=== PATIENT | male | born 1960 | race Hispanic/Latino ===

== ENCOUNTER 2018-04-02 14:58 | Emergency (ER) | payer OTHER ==
--- OUTSIDE RECORDS SUMMARY | 2018-04-02 15:01 | XMS REPORT ---
:1960 Author Organization eClinicalWorks Care Team Providers Name Role Phone Hernandez, Na Provider Role Unavailable Allergies, Adverse Reactions, Alerts Substance Reaction Event Type N.K.D.A. Info Not Available Non Drug Allergy Problems Problem Type Condition Code Onset Dates Condition Status Assessment Encounter for screening colonoscopy Z12.11 Active Assessment Benign essential HTN I10 Active Assessment Pure hypercholesterolemia E78.00 Active Assessment History of colon polyps Z86.010 Active Problem Peripheral neuropathy G62.9 Active Problem Encounter for screening colonoscopy Z12.11 Active Problem Benign essential HTN I10 Active Problem History of colon polyps Z86.010 Active Problem Pure hypercholesterolemia E78.00 Active Problem Hypertriglyceridemia E78.1 Active Problem Obese E66.9 Active Medications Medication Code System Code Instructions Start Date End Date Status Dosage Micardis [facility] [id number] 80 MG Orally Once Active 1 tablet a day Results No Known Results Summary Purpose eClinicalWorks Submission
--- NOTE | 2018-04-02 15:52 | ER ---
Nurse's Notes [facility] Name: Carrillo Kaye Age: 57 yrs Sex: Male : 1960 Arrival Date: 04/02/2018 Time: 15:00 Bed Waiting Private MD: Brenda Dudley L Diagnosis: Presentation: 04/02 15:44 Presenting complaint: Patient states: upper abd pain, nausea, vomiting, and diarrhea aa5 since yesterday. Transition of care: patient was not received from another setting of care. Onset of symptoms Onset of symptoms was March 2018. Risk Assessment: Do you want to hurt yourself or someone else? Patient reports no desire to harm self or others. Initial Sepsis Screen: Does the patient meet any 2 criteria? No. Patient's initial sepsis screen is negative. Does the patient have a suspected source of infection? No. Patient's initial sepsis screen is negative. Care prior to arrival: None. 15:44 Method Of Arrival: Ambulatory aa5 15:44 Acuity: RADAMES 3 aa5 Historical: - Allergies: 15:45 No Known Allergies; aa5 - PMHx: 15:45 Hypertension; aa5 - PSHx: 15:45 None; aa5 - Immunization history:: Adult Immunizations unknown. - Social history:: Smoking status: Patient/guardian denies using tobacco. - Ebola Screening: : No symptoms or risks identified at this time. Vital Signs: 15:45 BP 115 / 77; Pulse 108; Resp 16 S; Temp 98.4(TE); Pulse Ox 97% on R/A; Weight 102.97 kg aa5 (R); Height 5 ft. 8 in. (172.72 cm) (R); Pain 8/10; 15:45 Body Mass Index 34.51 (102.97 kg, 172.72 cm) aa5 ED Course: 15:00 Patient arrived in ED. sb2 15:01 Brenda Dudley MD is Private Physician. sb2 15:44 Triage completed. aa5 15:44 Arm band placed on. aa5 15:51 Andrews Dickey MD is Attending Physician. aa5 Administered Medications: No medications were administered Outcome: 15:51 Patient left the ED. aa5 Signatures: Megan Neri RN RN aa5 Francheska Gonzalez sb2
== END 2018-04-02 15:51 | disposition left against medical advice (07) ==
LOC: ER 14:58
DX: R10.10 Upper abdominal pain, unspecified (principal); R11.2 Nausea with vomiting, unspecified; R19.7 Diarrhea, unspecified; I10 Essential (primary) hypertension; Z53.21 Procedure and treatment not carried out due to patient leaving prior to being seen by health care provider
CPT/HCPCS: 99281

== ENCOUNTER 2020-10-17 04:55 | Emergency (ER) | payer OTHER ==
--- OUTSIDE RECORDS SUMMARY | 2020-10-17 05:00 | XMS REPORT ---
:1960 Author Organization [facility] Address [address] [place] [place] [address] Care Team Providers Name Role Phone Hernandez Unavailable [phone] PROBLEMS Type Condition ICD9-CM [id number] Onset Condition SNOMED Code Notes Code Code Dates Status Problem History of colon Z86.010 Active 848425820 polyps Problem Hypertriglyceridemia E78.1 Active 062955479 Problem Obese E66.9 Active 036897137 Problem Seasonal allergies J30.2 Active 669612342 Problem Eosinophilia D72.1 Active 886865066 Problem Seasonal allergic J30.2 Active 909111290 rhinitis, unspecified trigger Problem Benign essential HTN I10 Active 30788863 Problem Hospital discharge Z09 Active 890728784 follow-up Problem H. pylori infection A04.8 Active 494318681 Problem Trigger finger, right M65.331 Active 192596649 middle finger Problem Multiple joint pain M25.50 Active 71258809 Problem Other chronic pain G89.29 Active 77763160 Problem Severe obesity (BMI E66.01 Active 881111875528 04 35.0-39.9) with comorbidity Problem Allergic rhinitis, J30.9 Active 85943074 unspecified seasonality, unspecified trigger Problem Subacromial bursitis M75.51 Active 72036692571 22591 of right shoulder joint Problem Pain, joint, M25.511 Active [id number] shoulder, right Problem Strain of lumbar S39.012S Active 505766488 region, sequela Problem Peripheral neuropathy G62.9 Active 515688409 Problem Vitamin D deficiency E55.9 Active 06377174 Problem Encounter for Z12.11 Active 819749292 screening colonoscopy Problem Pure E78.00 Active 907556753 hypercholesterolemia Problem Impingement syndrome M75.41 Active 468936158 of right shoulder Problem Chronic fatigue R53.82 Active 39882930 Problem Tear of right rotator M75.101 Active 634604905 cuff, unspecified tear extent, unspecified whether traumatic Problem Primary M19.011 Active 102359497285438 osteoarthritis of right shoulder ALLERGIES No Known Allergies ENCOUNTERS from 1960 to 2020-09-09 Encounter Location Date Provider Diagnosis [facility] [place] [address] Lexy CROWELL 14 Aug, 2020 Na Hernandez Benign es sential HTN I10 ; Drive [address] [place], [facility] [place] [address] unspecified se asonality, unspecified tri gger J30.9 ; Hypertriglyceri demia E78.1 ; Chronic fatigue R53.82 ; Decreased libid o R68.82 ; Pure hyperchole sterolemia E78.00 ; Vitami n D deficiency E55. 9 and Multiple joint pain M25.50 IMMUNIZATIONS Vaccine Route Administration Date Status Afluria IM Intramuscular Jul 24, 2018 Administered LIDOCAINE HCL 10MG/ML Unknown April 19, 2019 Administer ed Kenalog (Triamcinolone) Unknown April 19, 2019 Administ ered SOCIAL HISTORY Tobacco Use: Social History Observation Description Date Details (start date - stop date) Never Smoker Sex Assigned At : Social History Observation Description Sex Assigned At Unknown PHQ9 Question Answer Notes Little interest or pleasure in doing things Several days Feeling down, depressed, or hopeless More than half the days Trouble falling or staying asleep or sleeping too much Not a t all Feeling tired or having little energy Several days Poor appetite or overeating Several days Feeling bad about yourself, or that you are a failure, Not a t all or have let yourself or your family down Trouble concentrating on things, such as reading the Not at all newspaper or watching television Moving or speaking so slowly that other people could Not at all have noticed; or the opposite, being so fidgety or restless that you have been moving around a lot more than usual Total Score 5 Interpretation Mild Depression Thoughts that you would be better off or of Not at all hurting yourself in some way Alcohol Screen Question Answer Notes Did you have a drink containing alcohol in Yes the past year? Points 5 Interpretation Positive How often did you have 6 or more drinks on Less than monthly (1 point) one occasion in the past year? How many drinks did you have on a typical 1 or 2 (0 points) day when you were drinking in the past year? How often did you have a drink containing Four or more times a week (4 points) alcohol in the past year? Tobacco Use/Smoking Question Answer Notes Are you a never smoker Additional Findings: Tobacco Non-User Current non-smoker REASON FOR REFERRAL No Information VITAL SIGNS Height 68 in Aug, Weight 234.6 lbs Aug, Temperature 94.7 degrees Fahrenheit Aug, BMI 35.67 kg/m2 Aug, Oximetry 97 % Aug, Respiratory Rate 16 /min Aug, Blood pressure systolic 136 mm Hg Aug, Blood pressure diastolic 75 mm Hg Aug, MEDICATIONS Medication SIG (Take, Route, Notes Start Date End Date Status Frequency, Duration) Zyrtec Allergy 10 MG 1 tablet Orally Once a Active day for 90 days Amoxicillin Not-Taking Omeprazole Not-Taking Flonase 50 MCG/ACT 2 spray in each nostril Mar, Not-Taking Nasally Once a day for 90 days Hydrochlorothiazide Not-T aking Micardis 40 MG 1 tablet Orally twice a Active date for 90 days Clarithromycin Not-Taking Micardis 40 MG 1.5 tablet Orally Once a Unknown day for 90 Cetirizine HCl 10 MG 1 tablet Orally Once a Mar, Not-Taking day for 90 days Telmisartan 40 MG TAKE 1 AND 1/2 TABLETS BY Active MOUTH EVERY DAY for 90 Meloxicam Not-Taking PROCEDURES No Information RESULTS No Results REASON FOR VISIT Medication refill , BP more elevated, hld, multiple joint , decrased libido /fatigue MEDICAL (GENERAL) HISTORY Type Description Date Medical History Benign essential HTN Medical History Hypertriglyceridemia Medical History Obese Medical History Peripheral neuropathy Surgical History No Surgical history information Goals Section No Information Health Concerns No Information MEDICAL EQUIPMENT No Information MENTAL STATUS No Information FUNCTIONAL STATUS No Information ASSESSMENTS Encounter Date Diagnosis Assessment Treatment Notes Treatment Notes Clinical Notes Aug, Benign essential HTN Maintian a low (ICD-10 - I10) salt DASH diet, exercise, weight loss and decrease stress recommended. Keep BP log and will review next visit. If blood pressure consistently above 140/90 return to clinic for adjustment of meds. Try to quit smoking if you currently smoke. Decrease caffeine intake if possible. -- increase micardis to 40 mg 1 tab twice daily from 1.5 tabs daily -- stop HCTZ as small chance could affect libido sexual dysfunction Aug, Allergic rhinitis, Allergies- avoid unspecified seasonality, triggers. Use unspecified trigger zyrtec or (ICD-10 - J30.9) claritin otc once daily in AM to help control watery itchy eyes and runny nose. Use Flonase nasal spray two sprays once a day to help decrease inflammation and decrease nasal drainage/post nasal drip. Use saline nasal mist or irrigation as directed. Aug, Hypertriglyceridemia low fat diet, (ICD-10 - E78.1) decrease fast food and fried foods. Increase fruit and vegetable intake. exercise as tolerated 30minutes per day at least 3 days a week. May take fish oil 1000mg twice daily to help increase good cholesterol (HDL). Aug, Chronic fatigue (ICD-10 Will check - R53.82) thyroid function, cbc, need to maintain well balanced diet, take MV. -Need to get at least 7-8 hours of sleep a day. -Recommend to exercise 3-4 days per week for 20-30 minutes as tolerated. Aug, Decreased libido (ICD-10 will refer to - R68.82) urology for eval, patient requesting procedure or something to help with erections so he will not have to take viagra/pills for ED. Aug, Pure low fat diet, hypercholesterolemia decrease fast (ICD-10 - E78.00) food and fried foods. Increase fruit and vegetable intake. exercise as tolerated 30minutes per day at least 3 days a week. May take fish oil 1000mg twice daily to help increase good cholesterol (HDL). Aug, Vitamin D deficiency Increase foods (ICD-10 - E55.9) rich in vitamin D such as leafy greens, low fat milk or yogurt. Stay physically active. For strong bones and osteoprosis prevention take calcium 1200mg daily and vitamin D3 (2,000mg) daily. continue to stay physically active and do weight bearing exercises. Aug, Multiple joint pain For pain control (ICD-10 - M25.50) try tylenol (acetaminophen) 500mg (2tabs) every 8 hours or as directed but Max of 3,000mg per day of acetaminophen( tylenol) and -Avoid use of NSAIDS( ie ibuprofen motrin, or aleve ) to decrease risk of stomach ulcers/ bleeding if you have a history of gerd or Heart issues. May also try tumeric 500mg twice daily as a natural anti-inflammator y with less side effects on your kidneys. -Avoid tylenol if you have liver issues. May also use ice and heat and oct topical lidocaine/mentho l sprays to decrease pain. 14 Aug, 2020 Other referral to -- Medications cardiology, need reviewed an d to maintain low updated. fat low carb -- Dietary and diet control BP, Lifestyle if symptoms modifications worsen go to ER. discussed w ith patient regardi ng low fat low enzo t diet diet, exercise and weight management. -- Treatment options, risks and benefits, side effects reviewed in detail. Patient accepts risk. -- Advised on signs/symptoms to monitor and whe n to call clinic and/or visit e [facility] ER. Patient verbalized understanding a nd agreed with lali n. -- Greater than 30 minutes was spent with patient during this encounter, of which >50% o f the time was spent counselin g and coordinatin g care including but not limited to discussion o f test results, diagnostic or treatment recommendations , prognosis, risk s and benefits of management options, instructions, education, compliance and or risk reduction. PLAN OF TREATMENT Medication Medication Name Sig Start Date Stop Date Micardis 40 MG 1 tablet Orally twice a date for 90 days Zyrtec Allergy 10 MG 1 tablet Orally Once a day for 90 days Treatment Notes Assessment Notes Clinical Notes Benign essential HTN Maintian a low salt DASH diet, exercise, weight loss and decrease stress recommended. Keep BP log and will review next visit. If blood pressure consistently above 140/90 return to clinic for adjustment of meds. Try to quit smoking if you currently smoke. Decrease caffeine intake if possible.-- increase micardis to 40 mg 1 tab twice daily from 1.5 tabs daily-- stop HCTZ as small chance could affect libido sexual dysfunction Allergic rhinitis, unspecified Allergies- avoid triggers. Us e seasonality, unspecified trigger zyrtec or claritin otc once daily in AM to help control watery itchy eyes and runny nose. Use Flonase nasal spray two sprays once a day to help decrease inflammation and decrease nasal drainage/post nasal drip. Use saline nasal mist or irrigation as directed. Hypertriglyceridemia low fat diet, decrease fast food and fried foods. Increase fruit and vegetable intake.exercise as tolerated 30minutes per day at least 3 days a week. May take fish oil 1000mg twice daily to help increase good cholesterol (HDL). Chronic fatigue Will check thyroid function, cbc, need to maintain well balanced diet, take MV.-Need to get at least 7-8 hours of sleep a day.-Recommend to exercise 3-4 days per week for 20-30 minutes as tolerated. Decreased libido will refer to urology for eval, patient requesting procedure or something to help with erections so he will not have to take viagra/pills for ED. Pure hypercholesterolemia low fat diet, decrease fast food and fried foods. Increase fruit and vegetable intake. exercise as tolerated 30minutes per day at least 3 days a week. May take fish oil 1000mg twice daily to help increase good cholesterol (HDL). Vitamin D deficiency Increase foods rich in vitamin D such as leafy greens, low fat milk or yogurt. Stay physically active.For strong bones and osteoprosis prevention take calcium 1200mg daily and vitamin D3 (2,000mg) daily. continue to stay physically active and do weight bearing exercises. Multiple joint pain For pain control try tylenol (acetaminophen) 500mg (2tabs) every 8 hours or as directed but Max of 3,000mg per day of acetaminophen( tylenol) and -Avoid use of NSAIDS( ie ibuprofen motrin, or aleve ) to decrease risk of stomach ulcers/ bleeding if you have a history of gerd or Heart issues. May also try tumeric 500mg twice daily as a natural anti-inflammatory with less side effects on your kidneys. -Avoid tylenol if you have liver issues. May also use ice and heat and oct topical lidocaine/menthol sprays to decrease pain. Treatment Notes Test Name Order Date Lipid Panel 2020-09-09 Comp. Metabolic Panel (14) (CMP) 2020-09-09 CBC With Differential/Platelet 2020-09-09 Vitamin D, 25-Hydroxy 2020-09-09 Next Appt Details 3 months labs prior Reason: Insurance Providers Payer Name Payer Payer Insured Patient Coverage Coverage End Address Phone Name Relationship to Start Date Tristan e Insured Community [phone] Carrillo Kaye 2016 [employer] [id number] [place] [address] [facility] [id number]
--- OUTSIDE RECORDS SUMMARY | 2020-10-17 05:00 | XMS REPORT | Continuity of Care Document ---
:1960 Author Organization [facility] t Address [address] [place] [address] Care Team Providers Name Role Phone Nicola DOVER Attending Clinician Pc, Echo Room 1 - Attending Clinician Unavailable Problems This patient has no known problems. Allergies, Adverse Reactions, Alerts This patient has no known allergies or adverse reactions. Medications Ordered Filled Start Stop Current Ordering Indication Dosage Frequency Signature Comments Components Source Medication Medication Date Date Medication? Clinician (SIG) Name Name Ergocalciwiliam Ergocalcife 2020-0 2020- No Na Hernandez [address] [facility]16 [facility] Flonase Flonase Yes Na Hernandez [address] [facility] 04-20 each [facility] nostril [facility] Cetirizine Cetirizine Yes Na Hernandez [address] [facility] HCl HCl 04-20 [facility] Micardis Micardis Yes Na Hernandez [address] [facility] Clarithromy Clarithromy Yes Na Hernandez not [facility] defined [facility] Omeprazole Omeprazole Yes Na Hernandez not [facility] Hydrochloro Hydrochloro Yes Na Hernandez not [facility] thiazide thiazide defined [facility] Amoxicillin Amoxicillin Yes Na Hernandez not [facility] Meloxicam Meloxicam Yes Na Hernandez not [facility] Telmisartan Telmisartan Yes Na Hernandez TAKE [address] [facility] 1/2 [facility] - TABLETS BY Memoria MOUTH l EVERY DAY [facility] Micardis Micardis Yes Na Hernandez 1.[address] [facility] [address] [facility] Allergy Allergy 12-30 [facility]00 [facility] :00 l [facility] Procedures This patient has no known procedures. Encounters Start End Encounter Admission Attending Care Care Encounter Source Date/Time Date/Time Type Type Clinicians Facility Department ID 2020-09-07 2020-09-07 Outpatient [facility]MLC [facility] [id number] [facility] 2020-05-16 2020-05-16 [facility] [id number] [facility] 21:57:00 21:57:00 [facility] Medicine [facility] 2020-05-14 2020-05-[id number] 07:47:06 23:59:00 Encounter Vince Dill [id number] [place] [address] [place], [place] [id number] [facility] 2020-05-14 2020-05-[id number] 07:46:55 07:46:55 Encounter Vince Dill [id number] [place] [id number] [place] [id number] [facility] 2020-05-14 2020-05-[id number] 07:46:44 07:46:44 Encounter Vince Dill [id number] [place] [id number] [place] [id number] 2020-05-14 2020-05-14 [facility] [id number] 07:46:32 07:46:32 Encounter Vince Dill [id number] [place] [id number] [place] [id number] 2020-05-12 2020-05-12 [facility] [id number] 00:00:00 00:00:00 Vince Dill [id number] [place] [id number] Professio [phone] nal 9 [facility] 2020-05-11 2020-05-11 Laboratory , [facility] [id number] 09:42:14 10:39:52 Only Echo Room 1 Fuentes [id number] - [place] [id number] Professio [id number] nal 9 [facility] 2020-05-04 2020-05-04 Office [facility] [id number] 11:06:49 15:54:21 Visit Vince Dill [id number] [place] [id number] Professio [id number] nal 059 [facility] 2020-04-29 2020-04-29 [facility] [id number] [facility] [address] 10:40:00 10:40:00 t [employer] [facility] 2020-01-13 2020-01-13 [facility] [id number] [facility] [address] 08:00:00 08:00:00 t [employer] [facility] Medicine [facility] 2019-12-30 2019-12-30 [facility] [id number] 08:40:00 08:40:00 t [employer] [facility] 2019-12-05 2019-12-05 [facility] [id number] [address] 11:20:00 11:20:00 t LS9 s [employer] [facility] Medicine Outpati ent Clinics 2019-12-03 2019-12-03 [facility] [id number] 09:06:00 09:06:00 t [employer] [facility] Medicine Outpati ent Clinics 2019-11-27 2019-11-27 [facility] [id number] 11:00:00 11:00:00 t [employer] [facility] Medicine Outpati ent Clinics 2019-10-24 2019-10-24 [facility] [id number] 15:20:00 15:20:00 t [employer] [facility] Medicine Outpati ent Clinics 2019-10-10 2019-10-10 [facility] [id number] 16:00:00 16:00:00 t [employer] [facility] Medicine Outpati ent Clinics 2019-10-08 2019-10-08 [facility] [id number] 15:28:00 15:28:00 t [facility] 2019-10-07 2019-10-07 [facility] [id number] 15:29:00 15:29:00 t [facility] Clinics 2019-10-02 2019-10-02 [facility] [id number] 11:47:00 11:47:00 t [employer] [facility] Medicine Outpati ent Clinics 2019-10-02 2019-10-02 [facility] [id number] 11:20:00 11:20:00 t [employer] [facility] Medicine Outpati ent Clinics 2019-09-12 2019-09-12 [facility] [id number] 10:00:00 10:00:00 t [employer] [facility] Medicine Outpati ent Clinics 2019-09-12 2019-09-12 [facility] [id number] 08:15:00 08:15:00 t [facility] 2019-08-28 2019-08-28 [facility] [id number] 11:20:00 11:20:00 t Aline Aline [employer] s - Drive [facility] Medicine Outpati ent Clinics 2019-08-21 2019-08-21 [facility] [id number] 10:20:00 10:20:00 t Aline Aline [employer] s - Drive [facility] Medicine Outpati ent Clinics 2019-08-14 2019-08-14 [facility] [id number] 11:20:00 11:20:00 t Aline Aline [employer] s - Drive [facility] 2019-07-30 2019-07-30 [facility] [id number] 11:00:00 11:00:00 t Aline [employer] s - Drive [facility] 2019-07-23 2019-07-23 [facility] [id number] 11:00:00 11:00:00 t Aline [employer] - Quosis [facility] 2019-07-12 2019-07-12 [facility] [id number] 08:00:00 08:00:00 t [facility] 2019-07-09 2019-07-09 [facility] [id number] 14:08:00 14:08:00 t [facility] 2019-06-28 2019-06-28 [facility] [id number] 08:15:00 08:15:[address] [facility] 2019-06-27 2019-06-27 [facility] [id number] 09:00:00 09:00:00 t [facility] 2019-06-20 2019-06-20 [facility] [id number] 15:41:00 15:41:00 t Aline Aline [employer] s - Drive [facility] ent Clinics 2019-06-06 2019-06-06 [facility] [id number] 08:40:00 08:40:00 t Aline Aline [employer] - Quosis [facility] ent Clinics 2019-05-07 2019-05-07 [facility] [id number] 10:40:00 10:40:00 t Aline [employer] [facility] ent Clinics 2019-04-19 2019-04-19 [facility] [id number] 08:00:00 08:00:00 t [facility] 2019-04-08 2019-04-08 [facility] [id number] 08:40:00 08:40:00 t Aline [employer] [facility] ent Clinics 2019-03-26 2019-03-26 [facility] [id number] 10:30:00 10:30:00 t [facility] 2019-03-26 2019-03-26 [facility] [id number] 08:40:00 08:40:00 t Aline Aline [employer] [facility] ent Clinics 2018-12-25 2018-12-25 [facility] [id number] 08:40:00 08:40:00 t Aline [employer] [facility] ent Clinics 2018-04-20 2018-04-20 [facility] [id number] 11:30:00 11:30:00 t Aline Aline [employer] [facility] 2018-04-02 2018-04-02 [facility] [place] [id number] 13:45:00 13:45:00 t [facility]gent [facility] 2017-12-27 2017-12-27 Outpatient Jovita Avendaño [id number] 10:15:00 10:15:00 t [employer] [facility] ent Clinics Results This patient has no known results.
[2020-10-17 06:12] LABS: Absolute Lymphocytes (CBC) 1.2 K/uL (0.7-4.9); Basophils % 0.3 % (0-1.3); Hematocrit 44.6 % (39.6-49.0); MPV 8.9 fL (7.6-11.3); RBC Red Blood Cell Count 5.11 M/uL (4.33-5.43)
[2020-10-17 06:13] LABS: Protime INR 1.08
[2020-10-17 06:29] LABS: ALT/SGPT 47 U/L (12-78); AST/SGOT 44 U/L (15-37); Albumin 3.4 g/dL (3.4-5.0); Alkaline Phosphatase 75 U/L (45-117); BUN Blood Urea Nitrogen 10 mg/dL (7-18); Bicarbonate 25 mmol/L (21-32); Bilirubin Direct 0.2 mg/dL (0-0.2); Bilirubin Total 0.7 mg/dL (0.2-1.0); Glucose Level 101 mg/dL (74-106); Magnesium 2.6 mg/dL (1.8-2.4); NT PRO-BNP 84 pg/mL (<125); Potassium 4.1 mmol/L (3.5-5.1); Protein, Total 8.2 g/dL (6.4-8.2); Sodium Level 135 mmol/L (136-145); Troponin (Emerg Dept Use Only) < 0.02 ng/mL (0.0-0.045)
[2020-10-17] MEDS ORDERED: CEFTRIAXONE/SWI 1gm 1 GM/10 ML SYR ONE (07:53)
[2020-10-17] MEDS ORDERED: dexAMETHasone 10 MG/ML VIAL ONE (07:53)
[2020-10-17] MEDS ORDERED: AZITHROMYCIN IV 500 MG in NA CHLORIDE 0.9% 250 ML IVPB ONE (08:00)
--- NOTE | 2020-10-17 08:17 | RAD REPORT ---
EXAM DESCRIPTION: CT - Chest For Pe Angio - 10/17/2020 7:59 am CLINICAL HISTORY: sob COMPARISON: None. TECHNIQUE: Dynamically enhanced axial 3 mm thick images of the chest were obtained during administra tion of <100> mL Isovue 370 IV contrast. Coronal and oblique reconstruction images were generated and reviewed. Exam utilizes a protocol for optimal evaluation of pulmonary arterial tree. Maximum intensity projections 3D imaging was utilized All CT scans are performed using dose optimization technique as appropriate and may include automated exposure control or mA/KV adjustment according to patient size. FINDINGS: A pulmonary embolus is not seen. A thoracic aortic aneurysm is not noted. A pleural effusion is not seen. A pericardial effusion is not seen. Moderate to marked bilateral ground-glass opacities Fatty liver IMPRESSION: Negative for a pulmonary embolism. [id number] bilateral ground-glass opacities can be seen with Covid pneumonia
--- NOTE | 2020-10-17 08:18 | RAD REPORT ---
EXAM DESCRIPTION: Pasquale Single View10/17/2020 5:42 am CLINICAL HISTORY: Shortness breath COMPARISON: none FINDINGS: Moderate bilateral pulmonary opacities. Heart is normal size IMPRESSION: Moderate bilateral pulmonary opacities probably pneumonia
--- NOTE | 2020-10-17 08:30 | EDPHYS ---
Physician Documentation [facility] Name: Carrillo Kaye Age: 59 yrs Sex: Male : 1960 Arrival Date: 10/17/2020 Time: 05:02 Bed 15 Private MD: Susanna Hernandez ED Physician Laureano Joyce HPI: 10/17 05:22 This 59 yrs old Male presents to ER via Ambulatory with complaints of low mh7 oxygen, Covid +. 05:22 The patient has shortness of breath at rest, with light activity. Onset: The mh7 symptoms/episode began/occurred last night. Duration: The symptoms are intermittent, with no pattern. The patient's shortness of breath is aggravated by coughing, light activity, is alleviated by sitting up. Associated signs and symptoms: Pertinent positives: non-productive cough, Pertinent negatives: chest pain, productive cough, diaphoresis, dizziness, fever, hemoptysis, loss of consciousness, nausea, numbness in extremities, visual changes, vomiting. Severity of symptoms: At their worst the symptoms were moderate today, in the emergency department the symptoms have improved moderately. Tested COVID positive this week. Historical: - Allergies: 05:21 No Known Allergies; lp1 - Home Meds: 05:21 Unable to obtain [Active]; lp1 - PMHx: 05:21 Hypertension; lp1 - PSHx: 05:21 None; lp1 - Immunization history:: Adult Immunizations up to date. - Social history:: Smoking status: Patient denies any tobacco usage or history of. ROS: 05:22 Constitutional: Negative for fever, chills, and weight loss, Eyes: Negative for injury, mh7 pain, redness, and discharge, ENT: Negative for injury, pain, and discharge, Neck: Negative for injury, pain, and swelling, Cardiovascular: Negative for chest pain, palpitations, and edema, Abdomen/GI: Negative for abdominal pain, nausea, vomiting, diarrhea, and constipation, Back: Negative for injury and pain, : Negative for injury, bleeding, discharge, and swelling, MS/Extremity: Negative for injury and deformity, Skin: Negative for injury, rash, and discoloration, Neuro: Negative for headache, weakness, numbness, tingling, and seizure, Psych: Negative for depression, anxiety, suicide ideation, homicidal ideation, and hallucinations, Allergy/Immunology: Negative for hives, rash, and allergies, Endocrine: Negative for neck swelling, polydipsia, polyuria, polyphagia, and marked weight changes, Hematologic/Lymphatic: Negative for swollen nodes, abnormal bleeding, and unusual bruising. Exam: 05:22 Constitutional: This is a well developed, well nourished patient who is awake, alert, mh7 and in no acute distress. Head/Face: Normocephalic, atraumatic. Eyes: Pupils equal round and reactive to light, extra-ocular motions intact. Lids and lashes normal. Conjunctiva and sclera are non-icteric and not injected. Cornea within normal limits. Periorbital areas with no swelling, redness, or edema. Neck: Trachea midline, no thyromegaly or masses palpated, and no cervical lymphadenopathy. Supple, full range of motion without nuchal rigidity, or vertebral point tenderness. No Meningismus. Chest/axilla: Normal chest wall appearance and motion. Nontender with no deformity. No lesions are appreciated. Cardiovascular: Regular rate and rhythm with a normal S1 and S2. No gallops, murmurs, or rubs. Normal PMI, no JVD. No pulse deficits. Respiratory: Lungs have equal breath sounds bilaterally, clear to auscultation and percussion. No rales, rhonchi or wheezes noted. No increased work of breathing, no retractions or nasal flaring. Abdomen/GI: Soft, non-tender, with normal bowel sounds. No distension or tympany. No guarding or rebound. No evidence of tenderness throughout. Back: No spinal tenderness. No costovertebral tenderness. Full range of motion. Skin: Warm, dry with normal turgor. Normal color with no rashes, no lesions, and no evidence of cellulitis. MS/ Extremity: Pulses equal, no cyanosis. Neurovascular intact. Full, normal range of motion. Neuro: Awake and alert, GCS 15, oriented to person, place, time, and situation. Cranial nerves II-XII grossly intact. Motor strength 5/5 in all extremities. Sensory grossly intact. Cerebellar exam normal. Normal gait. Psych: Awake, alert, with orientation to person, place and time. Behavior, mood, and affect are within normal limits. Vital Signs: 05:19 BP 146 / 80; Pulse 103; Resp 18; Temp 98.8(O); Pulse Ox 94% on R/A; Weight 104.33 kg lp1 (R); Height 5 ft. 8 in. (172.72 cm); Pain 0/10; 06:15 BP 141 / 94; Pulse 95; Resp 20; Pulse Ox 97% ; jb4 07:15 BP 131 / 69; Pulse 96; Resp 20; Pulse Ox 96% ; Pain 3/10; rb3 08:09 BP 136 / 86; Pulse 94; Resp 19; Pulse Ox 98% on R/A; rb3 09:41 BP 133 / 91; Pulse 99; Resp 20 S; Pulse Ox 96% on R/A; iw 05:19 Body Mass Index 34.97 (104.33 kg, 172.72 cm) lp1 MDM: 07:13 Transition of care: After a detail discussion of the patient's case, care is mh7 transferred to Laureano Joyce MD. 07:37 Patient medically screened. rn 07:37 ED course: Pt signed out to me by Dr. Huntley at shift change, reports pending CT chest, rn was not sure if patient required admission or not, was going to wait on CT chest and bloodwork.. 08:28 Differential diagnosis: Bronchitis pneumonia, Pneumothorax Pulmonary Embolism. Data rn reviewed: vital signs, nurses notes, lab test result(s), EKG, radiologic studies, CT scan, plain films, and as a result, I will discharge patient. Counseling: I had a detailed discussion with the patient and/or guardian regarding: the historical points, exam findings, and any diagnostic results supporting the discharge/admit diagnosis, lab results, radiology results, the need for outpatient follow up, to return to the emergency department if symptoms worsen or persist or if there are any questions or concerns that arise at home. Response to treatment: the patient's symptoms have markedly improved after treatment, and as a result, I will discharge patient. Special discussion: I discussed with the patient/guardian in detail that at this point there is no indication for admission to the hospital. It is understood, however, that if the symptoms persist or worsen the patient needs to return immediately for re-evaluation. ED course: CT chest neg for PE, + COVID pneumonia, oxygen 98% on RA and wearing mask, states feels much better. Will dc home with steroids and return precautions. . 10/17 05:19 Order name: Basic Metabolic Panel; Complete Time: 06:30 10/17 05:19 Order name: CBC with Diff; Complete Time: 06:30 10/17 05:19 Order name: LFT's; Complete Time: 06:30 10/17 05:19 Order name: Magnesium; Complete Time: 06:30 10/17 05:19 Order name: NT PRO-BNP; Complete Time: 06:30 10/17 05:19 Order name: PT-INR; Complete Time: 06:30 10/17 05:19 Order name: Troponin (emerg Dept Use Only); Complete Time: 06:30 10/17 05:19 Order name: XRAY Chest (1 view); Complete Time: 08:20 10/17 05:19 Order name: EKG; Complete Time: 05:20 10/17 06:12 Order name: Blood Culture Adult (2) 10/17 07:06 Order name: CT Chest For PE Angio; Complete Time: 08:20 10/17 05:19 Order name: Cardiac monitoring; Complete Time: 05:55 10/17 05:19 Order name: EKG - Nurse/Tech; Complete Time: 05:55 10/17 05:19 Order name: IV Saline Lock; Complete Time: 05:55 10/17 05:19 Order name: Labs collected and sent; Complete Time: 05:55 10/17 05:19 Order name: O2 Per Protocol; Complete Time: 05:55 10/17 05:19 Order name: O2 Sat Monitoring; Complete Time: 05:55 Administered Medications: 08:22 Drug: Decadron - Dexamethasone 10 mg Route: IVP; Site: right antecubital; rb3 09:44 Follow up: Response: No adverse reaction iw 08:22 Drug: Rocephin - (cefTRIAXone) 1 grams Route: IVPB; Infused Over: 30 mins; Site: right rb3 antecubital; 08:25 Follow up: IV Status: Completed infusion iw 08:35 Drug: Zithromax 500 mg Route: IVPB; Infused Over: 1 hrs; Site: right antecubital; rb3 09:44 Follow up: IV Status: Completed infusion iw Disposition: 10/17/20 08:30 Discharged to Home. Impression: Coronavirus infection, unspecified, Pneumonia, unspecified organism. - Condition is Stable. - Discharge Instructions: Community-Acquired Pneumonia, Adult, COVID-19. - Prescriptions for Prednisone 20 mg Oral Tablet - take 1 tablet by ORAL route as directed for 14 days Take 1 tablet by mouth twice daily for 7 days, then take 1 tablet by mouth daily for 7 days, 14 days total.; 21 tablet. Albuterol Sulfate 90 mcg/actuation - inhale 1-2 puff by INHALATION route every 4-6 hours; 1 Inhaler. - Medication Reconciliation Form, Thank You Letter, Antibiotic Education, Prescription Opioid Use form. - Follow up: Paras Thornton MD; When: 5 - 6 days; Reason: Recheck today's complaints, Re-evaluation by your physician. - Problem is an ongoing problem. - Symptoms have improved. Signatures: Dispatcher [employer] EDMS Leti Ulrich RN RN iw Laureano Joyce MD MD rn Pena, Laura, RN RN lp1 Luther Huntley MD MD 7 Jeanette Kelley, RN RN rb3 Corrections: (The following items were deleted from the chart) 09:44 08:30 10/17/2020 08:30 Discharged to Home. Impression: Coronavirus infection, iw unspecified; Pneumonia, unspecified organism. Condition is Stable. Forms are Medication Reconciliation Form, Thank You Letter, Antibiotic Education, Prescription Opioid Use. Follow up: Paras Thornton; When: 5 - 6 days; Reason: Recheck today's complaints, Re-evaluation by your physician. Problem is an ongoing problem. Symptoms have improved. rn
--- NOTE | 2020-10-17 08:30 | ER ---
Nurse's Notes [facility] Name: Carrillo Kaye Age: 59 yrs Sex: Male : 1960 Arrival Date: 10/17/2020 Time: 05:02 Bed 15 Private MD: Susanna Hernandez Diagnosis: Coronavirus infection, unspecified;Pneumonia, unspecified organism Presentation: 10/17 05:19 Chief complaint: Patient states: Reports diagnosed COVID + on 10/12/20, symptoms of back lp1 pain and cough that began on 10/08/20; Denies any fever; reports O2 at 89% at home. Coronavirus screen: Client reports previous positive COVID test result. Date of collection: October 12, 2020. Ebola Screen: No symptoms or risks identified at this time. Initial Sepsis Screen: Does the patient meet any 2 criteria? No. Patient's initial sepsis screen is negative. Does the patient have a suspected source of infection? No. Patient's initial sepsis screen is negative. Risk Assessment: Do you want to hurt yourself or someone else? Patient reports no desire to harm self or others. Onset of symptoms was October 17, 2020. 05:19 Method Of Arrival: Ambulatory lp1 05:19 Acuity: RADAMES 3 lp1 Historical: - Allergies: 05:21 No Known Allergies; lp1 - Home Meds: 05:21 Unable to obtain [Active]; lp1 - PMHx: 05:21 Hypertension; lp1 - PSHx: 05:21 None; lp1 - Immunization history:: Adult Immunizations up to date. - Social history:: Smoking status: Patient denies any tobacco usage or history of. Screenin:22 Abuse screen: Denies threats or abuse. Denies injuries from another. Nutritional lp1 screening: No deficits noted. Tuberculosis screening: No symptoms or risk factors identified. Fall Risk None identified. Assessment: 05:15 General: Appears in no apparent distress. comfortable, Behavior is calm, cooperative, jb4 appropriate for age. Pain: Complains of pain in chest Pain does not radiate. Pain currently is 4 out of 10 on a pain scale. Quality of pain is described as stabbing. Neuro: Level of Consciousness is awake, alert, obeys commands, Oriented to person, place, time, situation. Cardiovascular: Patient's skin is warm and dry. Respiratory: Airway is patent Respiratory effort is even, unlabored, Respiratory pattern is regular, symmetrical. GI: No signs and/or symptoms were reported involving the gastrointestinal system. : No signs and/or symptoms were reported regarding the genitourinary system. EENT: No signs and/or symptoms were reported regarding the EENT system. Derm: Skin is intact, Skin is pink, warm \T\ dry. Musculoskeletal: Circulation, motion, and sensation intact. Range of motion: intact in all extremities. 06:15 Reassessment: Patient appears in no apparent distress at this time. Patient and/or jb4 family updated on plan of care and expected duration. Pain level reassessed. Patient is alert, oriented x 3, equal unlabored respirations, skin warm/dry/pink. 07:07 General: Appears in no apparent distress. comfortable, Behavior is calm, cooperative. rb3 Pain: Complains of pain in chest Pain does not radiate. Pain currently is 3 out of 10 on a pain scale. Neuro: Level of Consciousness is awake, alert, obeys commands, Oriented to person, place, time, situation. Neuro: Level of Consciousness is awake, alert, obeys commands, Oriented to person, place, time, situation. Cardiovascular: Patient's skin is warm and dry. Respiratory: Airway is patent Respiratory effort is even, unlabored, Respiratory pattern is regular, symmetrical. 08:00 Reassessment: Patient appears in no apparent distress at this time. Patient and/or rb3 family updated on plan of care and expected duration. Pain level reassessed. Patient is alert, oriented x 3, equal unlabored respirations, skin warm/dry/pink. Patient states feeling better. 08:36 Reassessment: Discharge pending due to antibiotics infusing. rb3 09:00 Reassessment: Patient appears in no apparent distress at this time. No changes from rb3 previously documented assessment. Vital Signs: 05:19 BP 146 / 80; Pulse 103; Resp 18; Temp 98.8(O); Pulse Ox 94% on R/A; Weight 104.33 kg lp1 (R); Height 5 ft. 8 in. (172.72 cm); Pain 0/10; 06:15 BP 141 / 94; Pulse 95; Resp 20; Pulse Ox 97% ; jb4 07:15 BP 131 / 69; Pulse 96; Resp 20; Pulse Ox 96% ; Pain 3/10; rb3 08:09 BP 136 / 86; Pulse 94; Resp 19; Pulse Ox 98% on R/A; rb3 09:41 BP 133 / 91; Pulse 99; Resp 20 S; Pulse Ox 96% on R/A; iw 05:19 Body Mass Index 34.97 (104.33 kg, 172.72 cm) lp1 ED Course: 05:02 Patient arrived in ED. am2 05:02 Susanna Hernandez MD is Private Physician. am2 05:13 Luther Huntley MD is Attending Physician. mh7 05:15 Patient has correct armband on for positive identification. Placed in gown. Bed in low jb4 position. Call light in reach. Side rails up X 1. Pulse ox on. NIBP on. 05:21 Triage completed. lp1 05:22 Arm band placed on. lp1 05:29 Jah Shoemaker, RN is Primary Nurse. jb4 05:42 XRAY Chest (1 view) In Process Unspecified. EDMS 05:50 Initial lab(s) drawn, by al, sent to lab. Inserted saline lock: 20 gauge in right jb4 antecubital area, using aseptic technique. Blood collected. 07:37 Attending Physician role handed off by Luther Huntley MD rn 07:37 Laureano Joyce MD is Attending Physician. rn 07:59 CT Chest For PE Angio In Process Unspecified. EDMS 08:30 Paras Thornton MD is Referral Physician. rn 09:42 No provider procedures requiring assistance completed. IV discontinued, intact, iw bleeding controlled, No redness/swelling at site. Pressure dressing applied. Administered Medications: 08:22 Drug: Decadron - Dexamethasone 10 mg Route: IVP; Site: right antecubital; rb3 09:44 Follow up: Response: No adverse reaction iw 08:22 Drug: Rocephin - (cefTRIAXone) 1 grams Route: IVPB; Infused Over: 30 mins; Site: right rb3 antecubital; 08:25 Follow up: IV Status: Completed infusion iw 08:35 Drug: Zithromax 500 mg Route: IVPB; Infused Over: 1 hrs; Site: right antecubital; rb3 09:44 Follow up: IV Status: Completed infusion iw Outcome: 08:30 Discharge ordered by . rn 09:42 Discharged to home ambulatory, with family. iw 09:42 Condition: good 09:42 Discharge instructions given to patient, Instructed on discharge instructions, follow up and referral plans. medication usage, Demonstrated understanding of instructions, follow-up care, medications, Prescriptions given X 2. 09:44 Patient left the ED. iw Signatures: Dispatcher [employer] EDLeti Villarreal RN RN iw Laureano Joyce MD MD rn Pena, Laura RN RN lp1 Jah Shoemaker RN RN jb4 Liliana Vogel Maurice, MD MD mh7 Jeanette Kelley, RN RN rb3
[2020-10-17 09:48] VITALS: TEMP 98.8
[2020-10-17 09:54] VITALS: BP 133/91; O2SAT 96
== END 2020-10-17 09:44 | disposition home or self-care (01) ==
LOC: ER 04:55
DX: U07.1 COVID-19 (principal); J18.9 Pneumonia, unspecified organism; I10 Essential (primary) hypertension
CPT/HCPCS: 96365; 93005; 87040 ×2; 85025; 80048; 36415; 83735; 85610; 80076; 84484; 83880; 71275; 71045; 96375; 99284; Q9967; J0456; J1100; J0696; J7050